=== PATIENT | male | born 1960 | race Caucasian/White ===

== ENCOUNTER → 2021-12-05 | Outpatient (CLI) | payer OTHER ==
--- NOTE | 2021-12-05 16:50 | P.SLEEP ---
History of Present Illness DATE: 12/05/2021 CONSULTATION/NEW PATIENT EVALUATION HISTORY OF PRESENT ILLNESS/SLEEP-WAKE EVALUATION: 61year old gentleman had been evaluated in the sleep center for obstructive sleep apnea hypopnea syndrome.Patient has history of obstructive sleep apnea for about 2 years. For that time patient is on treatment with CPAP every night for the whole night. I checked CPAP unit CPAP pressure is 10 cm of water, usage is 100% of the time, average 8.8 hours per night. Leak is only 0 L/m which is perfect. Apnea hypopnea index is only 0.1 which is also perfect. SLEEP SCHEDULE: Usually sleep schedule on weekdayfrom 10 PM to 7 AM[], during days o from 10 PM to 8 AM[]. FALLING ASLEEP:No problems with falling asleep[]. DURING SLEEPWhile using CPAP patient may wake up from sleep up to 3 times with up to 2 episodes of nocturia[] No history of hypnogogical hallucinations, sleep paralysis, or cataplexy. DURING THE DAY/WAKE STATE:No sleepiness during the day[]. [place] sleepiness scale is 0[ Patient doesn't take any naps[]. PAST MEDICAL HISTORY: Hypertension, diabetes mellitus, hyperlipidemia, history of asthma in the past[]. PAST SURGICAL HISTORY:Cholecystectomy, cataract surgery on the left side[]. MEDICATIONS: Metformin 500 mg 2 tablets twice a day, glipizide 10 mg once a day, atorvastatin 40 mg once a day, benazepril 5 mg once a day, Celebrex 200 mg once a day, pioglitazone 30 mg once a day[]. SOCIAL HISTORY: []History of smokingin the past , alcohol consumption occasional. FAMILY HISTORY cancer[]. REVIEW OF SYSTEMSAwakenings from sleep[]. No fevers. No double vision. No recent chest pain. No shortness of breath. No abdominal pain. No bleeding episodes. No blood in urine. No seizure episodes. PHYSICAL EXAMINATION: GENERAL: A pleasant patient without any distress. VITAL SIGNS: BP[] 136/78 , HR 94[] , RR[] 18 , weight[] 320.8 pounds, height 5 []foot 8-1/2 []inches, body mass index 48.6[] . HEENT: PERRLA, EOMI. Evaluation of oropharynx showed tongue protrudes midline, low position of soft palate Mallampati 4[]. NECK: Supple. No JVD. Thyroid is not palpable. [] 20 inches in circumference. LUNGS: Clear to percussion and to auscultation. Good air exchange. No wheezing or rhonchi. HEART: S1, S2 regular. No murmurs, gallops or rubs. ABDOMEN: Soft and nontender. Bowel sounds are present. No organomegaly appreciated. obese EXTREMITIES: No clubbing or cyanosis. FILENET DEVELOPER: Awake, alert, and oriented x3. Cranial nerves 2 to 7 intact. There is no fasciculation or atrophy noted. No focal deficits observed. ASSESSMENT: 1 Obstructive sleep apnea hypopnea syndrome documented 2 years ago. Patient continued to use his CPAP equipment every night for the whole night, demonstrated 100% compliance with CPAP therapy. Extremely low position of soft palate Mallampati 4, extremely wide neck.[]. 2 Obesity body mass index 48.6[]. 3hypertension[]. 4 Diabetes mellitus[]. 5hyperlipidemia[]. 6 History of asthma in the past[]. 7 Status post cholecystectomy[]. 8 Status post cataract surgery in the left side[]. PLAN: 1. To get results of previous sleep studies 2. continue to use CPAP equipment every night for the whole night 3. Preferable position during sleep on the side. 4. No driving if patient feels any sleepiness. Patient is aware of civil and criminal liability for unsafe driving. 5. Sleep hygiene with regular sleep time for at least 7.5-8 hours. 6. Watching and losing weight. 7. Follow-up visit in 6 months or earlier if patient has any problems Thank you very much for referring this patient for consultation. Sincerely, Cornel Nunn MD, PhD, FAASM. Diplomat of [place] [employer], Sleep Medicine Board by [place] [employer] [place] [employer] [facility] [place] Past Medical History Past Medical History: Asthma, Diabetes Mellitus, Hypertension Additional Past Medical History / Comment(s): industrial asthma; History of Any Multi-Drug Resistant Organisms: None Reported Past Surgical History: Back Surgery Additional Past Surgical History / Comment(s): Lumbar L5, S1 Past Anesthesia/Blood Transfusion Reactions: No Reported Reaction Past Psychological History: No Psychological Hx Reported Past Alcohol Use History: None Reported Additional Past Alcohol Use History / Comment(s): Pt states he has used hard drugs many many years ago; marijuana, cocaine, etc. No withdrawal assessment neccessary; smoked socially when younger Past Drug Use History: None Reported - Past Family History Mother Family Medical History: Cancer Additional Family Medical History / Comment(s): Lung CA met. to brain Father Family Medical History: Cancer, Diabetes Mellitus, Hearing Disorder / Deafness, Hypertension Additional Family Medical History / Comment(s): Pancreatic CA- ; agent orange; Medications and Allergies Home Medications Medication Instructions Recorded Confirmed Type Benazepril [Lotensin] 10 mg PO DAILY 07/05/15 07/05/15 History Calcium/Magnesium/Zinc 1 tab PO BID 07/05/15 07/05/15 History [Lxtcukh-Npfzkjmuw-Pnok Tablet] Exenatide Microspheres [Bydureon 2 mg SQ ROBINS 07/05/15 07/05/15 History Pen] Famotidine [Pepcid] 20 mg PO BID 07/05/15 07/05/15 History Furosemide [Lasix] 20 mg PO DAILY 07/05/15 07/05/15 History Milk Thistle 150 mg PO TID 07/05/15 07/05/15 History Sodium Chloride [[place]] 1 spray EA NOSTRIL DAILY PRN 07/05/15 07/05/15 History Allergies Allergy/AdvReac Type Severity Reaction Status Date / Time codeine Allergy Rash/Hives Verified 07/05/15 21:53 morphine Allergy Rash/Hives Verified 07/05/15 21:53 Sleep Note - Sleep Note Sleep Note: Temperature: Pulse Rate: Respiratory Rate: Blood Pressure: SpO2: Height: Weight: BMI: Neck Circumference:
== END ==
LOC: SLEEP 16:18
PROVIDERS: ATTEND Internal Medicine
DX: G47.33 Obstructive sleep apnea (adult) (pediatric) (principal); Z99.89 Dependence on other enabling machines and devices; I10 Essential (primary) hypertension; E11.9 Type 2 diabetes mellitus without complications; E78.5 Hyperlipidemia, unspecified; Z87.09 Personal history of other diseases of the respiratory system; Z90.49 Acquired absence of other specified parts of digestive tract; Z98.890 Other specified postprocedural states; Z79.84 Long term (current) use of oral hypoglycemic drugs
CPT/HCPCS: 99211